=== PATIENT | female | born 1980 | race Caucasian/White ===

== ENCOUNTER 2021-07-22 17:14 | Emergency (ER) | payer OTHER, BC ==
[2021-07-22] MEDS ORDERED: IBUPROFEN 200 MG TABLET PO ONE (18:21)
[2021-07-22] MEDS ORDERED: ONDANSETRON *ODT* 4 MG TABLET SL ONE (18:21)
[2021-07-22] MEDS ORDERED: IBUPROFEN 600 MG TABLET (FP) PO ONE (19:04)
== END 2021-07-22 19:42 | disposition home or self-care (01) ==
LOC: FER 17:14
DX: S09.90XA Unspecified injury of head, initial encounter (principal); W50.0XXA Accidental hit or strike by another person, initial encounter
CPT/HCPCS: 70450-TC; 99284-25; Q0162